=== PATIENT | female | born 1965 | race Caucasian/White ===

== ENCOUNTER 2023-04-03 13:42 | Emergency (ER) | payer BC ==
[2023-04-03] MEDS ORDERED: Ondansetron PF 4 MG/2 ML Vial ONE ×2 (14:22→15:46)
[2023-04-03 14:24] LABS: #Basophils 0.1 thou/uL (0.0-0.2); #Eosinphils 0.1 thou/uL (0.0-0.7); #Lymphocytes 1.9 thou/uL (1.20-3.40); #Monocytes 0.7 thou/uL (0.11-0.59); #Neutrophils 8.6 thou/uL (1.40-6.50); %Basophils 0.7 % (0.0-1.0); %Eosinophils 0.5 % (0.0-10.0); %Lymphocytes 16.9 % (21.0-51.0); %Monocytes 6.2 % (0.0-10.0); %Neutrophils 75.7 % (42.0-75.0); Hemoglobin 13.5 g/dL (12.0-16.0); Mean Corpuscular HGB CONC 33.2 g/dL (32.0-36.0); Mean Corpuscular Hemoglobin 28.7 pg (27.0-31.0); Mean Corpuscular Volume 86.6 fl (78.0-98.0); Mean Platelet Volume 10.1 fL (7.4-10.4); Platelet Count 285 10x3/uL (130-400); Red Blood Cell (RBC) Count 4.72 mill/uL (4.20-5.40); White Blood Cell (WBC) Count 11.3 10x3/uL (4.8-10.8)
[2023-04-03 14:37] LABS: Albumin 3.6 g/dL (3.5-5.0); Anion Gap 14 mmol/L (10-20); BUN (Urea Nitrogen) 9 mg/dL (9.8-20.1); Bilirubin, Total 0.4 mg/dL (0.2-1.2); Calc. Creatinine Clearance 0 mL/min (70-130); Calcium 9.4 mg/dL (7.8-10.44); Carbon Dioxide 23 mmol/L (22-29); Chloride 106 mmol/L (98-107); Estimated GFR 78; Glucose 113 mg/dL (70-105); Potassium 3.6 mmol/L (3.5-5.1); Sodium 139 mmol/L (136-145)
[2023-04-03 14:38] LABS: ALT (SGPT) 18 U/L (8-55); AST (SGOT) 17 U/L (5-34); Alkaline Phosphatase 68 U/L (40-110); Globulin 3.4 g/dL (2.4-3.5)
== END 2023-04-03 16:56 | disposition home or self-care (01) ==
LOC: BURERS 13:42
DX: E86.0 Dehydration (principal); R11.0 Nausea; D72.829 Elevated white blood cell count, unspecified; E03.9 Hypothyroidism, unspecified
CPT/HCPCS: 80053; 85025; 93005; 96361; 96374; 96376; J2405